=== PATIENT | female | born 1985 | race Caucasian/White ===

== ENCOUNTER → 2021-05-17 | Outpatient (CLI) | payer SELFPAY | LOC: LAB SHORT 17:46 | DX: R30.0 Dysuria (principal) | CPT/HCPCS: 87086 ==

== ENCOUNTER → 2024-04-08 | Outpatient (CLI) | payer OTHER | LOC: LAB SHORT 08:00 → LAB 08:00 | DX: D06.0 Carcinoma in situ of endocervix (principal); R87.613 High grade squamous intraepithelial lesion on cytologic smear of cervix (HGSIL) | CPT/HCPCS: 88305 ==

== ENCOUNTER 2024-05-06 14:22 | Day surgery (SDC) | payer OTHER ==
[2024-05-06] VITALS (10 sets, daily range): BP systolic 137–146; BP diastolic 82–99
[~2024-05-06] VITALS: Ht 167.6 cm; Wt 85.1 kg
[~2024-05-06 14:22] MED LIST: Lactated Ringer's 1,000 ML IV SCH; LevonorgestreL 1 EACH IUD VAG ONE
--- NOTE | 2024-05-06 15:17 | NUR ---
History, Chart, Medications and Allergies reviewed before start of procedure. Pre-Op teaching done. Pt verbalizes understanding. Patient confirms NPO status and agrees with scheduled surgery. Patient States Post-Procedure ride home has been arranged WITH [employer].
[2024-05-06] MEDS ORDERED: FentaNYL Citrate 50 MCG/ML 2 ML Injection ONE ×2 (15:30→16:54)
[2024-05-06] MEDS ORDERED: Ondansetron HCl 2 MG / ML 2ML Vial ONE (15:30)
[2024-05-06] MEDS ORDERED: Dexamethasone Sod Phos 10 MG/ML 1ML VIAL ONE (15:30)
[2024-05-06] MEDS ORDERED: propofoL 20 ML IV ONE (15:30)
[2024-05-06] MEDS ORDERED: Ketorolac Tromethamine 30mg Vial ONE (15:30)
[2024-05-06] MEDS ORDERED: Bupivacaine 0.5% W/EPI 1:200000 SDV 30 ML Vial ONE (15:32)
[2024-05-06] MEDS ORDERED: Lidocaine HCl 1% 30 ML SDV ONE (15:36)
[2024-05-06] MEDS ORDERED: Vasopressin 20 UNITS/ML 1ML Vial ONE (15:47)
--- NOTE | 2024-05-06 16:33 | NUR ---
05/06/24 1633 Jamal,Mirlande PROGESTIN IUD PLACED BY DR. FERRARI.
[2024-05-06] MEDS ORDERED: Ibuprofen 400 MG Tab PO PRN (17:00)
--- NOTE | 2024-05-06 17:48 | NUR ---
DISCHARGE NOTE PT A&OX4, BREATHING RA, VSS, TOLERATING PO FLUIDS. HUSBABND AT BEDSIDE. SCANT BROWN/SANGUINOUS DRAINGE TO MATT PAD. PT DRESSED INDEPENDENTLY. Patient up to Ambulate independently. Gait steady. Discharge instructions reviewed with patient. Patient verbalizes understanding. Copy given to patient to take home. Discharged via wheelchair to private car for ride home.PT REPORTS NO NAUSEA AND TOLERABLE PAIN LEVEL.
== END 2024-05-06 17:50 | disposition home or self-care (01) ==
LOC: ORSCMMR 14:22 → ORD 15:30 → ORSCMMR 17:50
PROVIDERS: Obstetrics & Gynecology
PROC: 0UH97HZ Insertion of Contraceptive Device into Uterus, Via Natural or Artificial Opening (ICD-10-PCS; principal; 2024-05-06 15:30)
PROC: 0UBC7ZX Excision of Cervix, Via Natural or Artificial Opening, Diagnostic (ICD-10-PCS; principal; 2024-05-06 15:30)
DX: D06.9 Carcinoma in situ of cervix, unspecified (principal); N92.4 Excessive bleeding in the premenopausal period; Z30.430 Encounter for insertion of intrauterine contraceptive device; E66.9 Obesity, unspecified; Z68.30 Body mass index [BMI] 30.0-30.9, adult
CPT/HCPCS: 88305; 88341; 88342; J1100; J1885; J2405; J2704; J3010; J7120; J7297

== ENCOUNTER 2024-10-01 23:24 | Emergency (ER) | payer OTHER ==
[~2024-10-01] VITALS: Ht 167.6 cm; Wt 83.9 kg
[2024-10-02] MEDS ORDERED: FentaNYL Citrate 50 MCG/ML 2 ML Injection IV ONE ×2 (01:30→02:45)
[2024-10-02] MEDS ORDERED: Propofol 10mg/ml 20 ml Vial (Procedural) IV SCH (01:55)
[2024-10-02] MEDS ORDERED: NS 1,000 ML IV ONE ×2 (02:09→06:06)
[2024-10-02] MEDS ORDERED: Ondansetron HCl 2 MG / ML 2ML Vial ONE (02:26)
[2024-10-02] MEDS ORDERED: Diazepam 5 MG / ML 2ML SYR IV ONE (03:10)
[2024-10-02] MEDS ORDERED: Morphine Sulfate 10 MG/ML 1MLSYR IV ONE (04:55)
[2024-10-02] MEDS ORDERED: Ketamine HCl 100 MG / ML 5ML Vial IV ONE (05:50)
[2024-10-02] MEDS ORDERED: Propofol 10mg/ml 20 ml Vial (Procedural) IV ONE (05:55)
[2024-10-02] MEDS ORDERED: RX Prepack 6 Tabs Oxycodone 5mg UD ONE (08:30)
[2024-10-02] MEDS ORDERED: Robaxin750 MG PO (08:45)
[2024-10-02 09:08] VITALS: BP 156/78
== END 2024-10-02 09:09 | disposition home or self-care (01) ==
LOC: ER 23:24
DX: S52.121A Displaced fracture of head of right radius, initial encounter for closed fracture (principal); W01.0XXA Fall on same level from slipping, tripping and stumbling without subsequent striking against object, initial encounter; Z88.0 Allergy status to penicillin; Z88.5 Allergy status to narcotic agent
CPT/HCPCS: 24600; 73070; 73200; 76000; 96374; 96375; 96376; 99152; 99284; A6590; A9270; J2270; J2405; J2704; J3010; J3360; J7030

== ENCOUNTER 2024-12-14 13:02 | Day surgery (SDC) | payer OTHER ==
[~2024-12-14] VITALS: Ht 167.6 cm; Wt 82.8 kg
[2024-12-14] VITALS (10 sets, daily range): BP systolic 126–149; BP diastolic 70–94
[2024-12-14] MEDS ORDERED: FentaNYL Citrate 50 MCG/ML 2 ML Injection ONE (14:39)
[2024-12-14] MEDS ORDERED: Metoclopramide HCl 5MG / ML 2ML Vial ONE (14:58)
[2024-12-14] MEDS ORDERED: Ondansetron HCl 2 MG / ML 2ML Vial ONE (14:58)
[2024-12-14] MEDS ORDERED: Dexamethasone Sod Phos 10 MG/ML 1ML VIAL ONE (14:58)
[2024-12-14] MEDS ORDERED: Ketorolac Tromethamine 30mg Vial ONE (14:59)
[2024-12-14] MEDS ORDERED: HYDROmorphone HCl/Pf 1MG SYR ONE (15:05)
[2024-12-14] MEDS ORDERED: FentaNYL Citrate 50 MCG/ML 2 ML Injection IV PRN ×2 (15:10→15:15)
[2024-12-14] MEDS ORDERED: HYDROmorphone HCl/Pf 1MG SYR IV PRN ×2 (15:10→15:15)
[2024-12-14] MEDS ORDERED: Ondansetron HCl 2 MG / ML 2ML Vial IV PRN (15:15)
--- NOTE | 2024-12-14 15:18 | NUR ---
12/14/24 1518 YASHIRA MORALES MIRENA IUD PLACED, SOURCED FROM DR FERRARI[facility]S [facility], NOT CHARGABLE IN OR. 52MG MIRENA IUD PLACED BY VEGA DILL.
--- NOTE | 2024-12-14 17:02 | NUR ---
Patient up to Ambulate independently. Gait steady. Dressing to procedure site clean, dry, intact with no visible drainage, swelling, erythema or bruising noted. Patient States Post-Procedure ride home has been arranged. Discharge instructions reviewed with patient. Patient verbalizes understanding. Copy given to patient to take home. Discharged via wheelchair to private car for ride home. ALL BELONINGS RETURNED TO PATIENT.
== END 2024-12-14 23:00 | disposition home or self-care (01) ==
LOC: ORSCMMR 13:02 → ORD 13:02 → ORSCMMR 13:03 → ORD 15:15 → ORSCMMR 23:00
PROVIDERS: Obstetrics & Gynecology
PROC: 0UJ Female Reproductive System, Inspection (ICD-10-PCS; principal; 2024-12-14 14:30)
PROC: 0UPD8HZ Removal of Contraceptive Device from Uterus and Cervix, Via Natural or Artificial Opening Endoscopic (ICD-10-PCS; principal; 2024-12-14 14:30)
DX: Z30.432 Encounter for removal of intrauterine contraceptive device (principal); N92.4 Excessive bleeding in the premenopausal period
CPT/HCPCS: J1100; J1171; J1885; J2405; J2704; J2765; J3010; J7120

== ENCOUNTER → 2024-12-14 | Outpatient (CLI) | payer OTHER ==
[~2024-12-14] MED LIST changes: -Lactated Ringer's 1,000 ML IV SCH; -LevonorgestreL 1 EACH IUD VAG ONE; +Robaxin750 MG PO
[2024-12-14 13:28] LABS: Source, Urine Clean Catch
[2024-12-14 13:56] LABS: BASOPHILS ABSOLUTE AUTO 0.03 K/mm3 (0.00-0.23); BASOPHILS PERCENT AUTO 0 % (0-2); EOSINOPHILS ABSOLUTE AUTO 0.07 K/mm3 (0.00-0.68); EOSINOPHILS PERCENT AUTO 1 % (0-6); Hematocrit 44.1 % (33.0-51.0); Hemoglobin 14.9 g/dL (11.5-16.0); IMMATURE GRAN ABSOLUTE AUTO 0.04 K/mm3 (0.00-0.10); IMMATURE GRAN PERCENT AUTO 0 % (0-1); LYMPHOCYTES ABSOLUTE AUTO 2.56 K/mm3 (0.84-5.20); LYMPHOCYTES PERCENT AUTO 22 % (21-46); MONOCYTES ABSOLUTE AUTO 0.51 K/mm3 (0.16-1.47); MONOCYTES PERCENT AUTO 5 % (4-13); Mean Corpuscular HGB Conc 33.8 g/dL (31.5-36.5); Mean Corpuscular Volume 94 fL (80-100); NEUTROPHILS ABSOLUTE AUTO 8.25 K/mm3 (1.96-9.15); NEUTROPHILS PERCENT AUTO 72 % (41-73); NRBC ABSOLUTE 0.00 K/mm3 (0.00-0.02); NRBC Auto 0.0 /100 WBC (0.0-0.2); Platelet Count 206 K/mm3 (150-400); RDW Coefficient Variation 12.8 % (11.7-14.2); RDW Standard Deviation 43.8 fL (35.1-46.3)
[2024-12-14 16:08] LABS: Bilirubin, Urine Neg (Neg); Color, Urine Yellow (P-Yellow); Glucose Qualitative, Urine Neg (Neg); Ketones, Urine Neg (Neg); Leukocyte Esterase, Urine 1+ (Neg); Protein, Urine 2+ (Neg); Specific Gravity, Urine 1.020 (1.003-1.022); Urobilinogen, Urine NORM (Normal)
== END ==
LOC: LAB 11:15 → LAB SHORT 11:15
PROVIDERS: Obstetrics & Gynecology
DX: Z01.812 Encounter for preprocedural laboratory examination (principal); Z87.42 Personal history of other diseases of the female genital tract
CPT/HCPCS: 36415; 81001; 85025; 87086; 87624; G0123